=== PATIENT | female | born 1995 | race Caucasian/White ===

== ENCOUNTER 2016-10-07 12:35 | Inpatient (IN) | payer BC ==
[2016-10-07] VITALS (7 sets, daily range): BP systolic 71–87; BP diastolic 43–66
[~2016-10-07] VITALS: Ht 154.9 cm; Wt 54.1 kg
--- NOTE | 2016-10-07 12:53 | NUR ---
PRESENTS SELF TO ED DUE TO CO SOB SINCE THIS AM. PT IS AAO4, APPEARS IN NO APPARENT DISTRESS, HOWEVER PATIENT APPEARS ANXIOUS. PT IS SATING WELL ON ROOM AIR. SKIN IS WARM TO TOUCH AND NON DIAPHORETIC. PATIENT IS AFEBRILE. VSS
[2016-10-07] MEDS ORDERED: LORAZEPAM INJ 2 MG/ML VIAL IM ONE (13:00)
[2016-10-07] MEDS ORDERED: LORAZEPAM INJ 2 MG/ML VIAL ONE (13:10)
--- NOTE | 2016-10-07 13:27 | NUR ---
MEDICATED PT ORDERED
[2016-10-07] MEDS ORDERED: IV SET PRIMARY PUMP SET 1 EA INFUS.SET MC ONE ×3 (14:25→19:48)
[2016-10-07] MEDS ORDERED: IV NS 0.9% 1,000 ML ONE ×2 (14:25→15:21)
[2016-10-07] MEDS ORDERED: IV NS 0.9% 1,000 ML IV ONE ×2 (14:30→21:00)
[2016-10-07] MEDS ORDERED: IV SET PRIMARY 1 EA INFUS.SET MC ONE (15:21)
[2016-10-07] MEDS ORDERED: IV NS 0.9% 1,000 ML BAG IV ONE (15:30)
[2016-10-07 15:41] LABS: BASOPHILS # (AUTO) 0.2 /CMM (0.0-0.2); EOSINOPHILS % (AUTO) 0.3 % (0.0-6.0); HEMATOCRIT 36 % (33-45); HEMOGLOBIN 12.5 g/dL (11.5-14.8); LYMPHOCYTES # (AUTO) 0.6 /CMM (0.8-4.8); LYMPHOCYTES % (AUTO) 4.9 % (20.0-44.0); MEAN CORPUSCULAR HEMOGLOBIN 32 PG (26.0-33.0); MEAN CORPUSCULAR HGB CONC 35 g/dl (31.0-36.0); MEAN CORPUSCULAR VOLUME 91 fL (82-100); MONOCYTES # (AUTO) 0.5 /CMM (0.1-1.30); MONOCYTES % (AUTO) 4.2 % (2.0-12.0); NEUTROPHILS # (AUTO) 11.1 /CMM (1.8-8.9); NEUTROPHILS % (AUTO) 88.6 % (43.0-81.0); PLATELET COUNT (AUTO) 177 /CMM (150-450); RDW COEFFICIENT OF VARIATION 12.2 (11.5-15.0); RED BLOOD CELL COUNT(AUTO) 3.96 MIL/uL (4.0-5.2); WHITE BLOOD COUNT (AUTO) 12.4 K/uL (4.3-11.0)
[2016-10-07 15:51] LABS: CALCIUM, SERUM 7.8 mg/dL (8.5-10.1); CREATININE 0.8 mg/dL (0.6-1.3); POTASSIUM 3.3 mmol/L (3.5-5.1)
[2016-10-07] MEDS ORDERED: ACETAMINOPHEN ES 500 MG TABLET ONE (15:53)
[2016-10-07 15:57] LABS: BILIRUBIN,DIRECT 0.1 mg/dL (0.0-0.2); BILIRUBIN,TOTAL 0.6 mg/dL (0.2-1.0); TOTAL PROTEIN, SERUM 5.8 g/dL (6.4-8.2)
[2016-10-07] MEDS ORDERED: ACETAMINOPHEN 325 MG TABLET PO ONE (16:00)
--- NOTE | 2016-10-07 16:12 | NUR ---
PATIENT NOTED WITH TEMP 100.8.
[2016-10-07 16:20] LABS: APPEARANCE,URINE Slightly Cloudy (CLEAR); BILIRUBIN,URINE SMALL (NEGATIVE); BLOOD, URINE Negative Ery/uL (NEGATIVE); COLOR,URINE Dark (YELLOW); KETONES,URINE 15 (NEGATIVE); LEUKOCYTE ESTERASE ,URINE Trace (NEGATIVE); NITRITE, URINE Negative (NEGATIVE); PROTEIN,URINE 30 mg/dl (NEGATIVE); UGLUCOSE Negative (NEGATIVE); UROBILINOGEN,URINE 0.2 EU/dL (0.2)
[2016-10-07 16:25] LABS: PREGNANCY TEST URINE QUAL NEGATIVE (NEGATIVE)
[2016-10-07 16:31] LABS: BACTERIA,URINE Moderate /HPF (None Seen); RBC,URINE 0-2 /HPF (0-2); SQUAMOUS EPITHELIAL CELL,UR Many /HPF (None Seen)
[2016-10-07] MEDS ORDERED: CT SWABBABLE VALVE TRANS SET 1 EA INFUS.SET MC ONE (16:34)
[2016-10-07] MEDS ORDERED: IOHEXOL-350 100 ML VIAL IV ONE (16:34)
[2016-10-07] MEDS ORDERED: IV NS 0.9% 250 ML IV ONE (16:34)
[2016-10-07] MEDS ORDERED: CEFTRIAXONE 1 G in IV D5W 50 ML IV ONE (17:00)
[2016-10-07] MEDS ORDERED: CEFTRIAXONE 1GM BAG (ER ONLY) 50 ML IV ONE (17:02)
[2016-10-07] MEDS ORDERED: SERT50TA PO (17:38)
[2016-10-07] MEDS ORDERED: [UNRECOGNIZED DRUG - REMARK] PO (17:38)
[2016-10-07] MEDS ORDERED: PROP20TA7 PO (17:38)
[2016-10-07] MEDS ORDERED: SERT25TA PO (17:38)
[2016-10-07] MEDS ORDERED: HYDR5TAB PO ×2 (17:45→17:47)
--- NOTE | 2016-10-07 17:58 | NUR ---
Patient is resting comfortably in bed with eyes closed. Easily aroused. VSS
[2016-10-07] MEDS ORDERED: HYDROCODONE/APAP 5/325MG 1 EACH TABLET PO PRN (18:00)
[2016-10-07] MEDS ORDERED: ONDANSETRON HCL/PF 4 MG/2 ML VIAL IVP PRN (18:00)
[2016-10-07] MEDS ORDERED: ACETAMINOPHEN 325 MG TABLET PO PRN (18:00)
[2016-10-07] MEDS ORDERED: Z GUARD REMEDY 2 OZ OINT TP PRN (18:00)
[2016-10-07] MEDS ORDERED: MAGNESIUM HYDROXIDE 30 ML UDC PO PRN (18:00)
[2016-10-07] MEDS ORDERED: MAG HYDROX/AL HYDROX/SIMETH 30 ML UDC PO PRN (18:00)
[2016-10-07] MEDS ORDERED: ZOLPIDEM TARTRATE 5 MG TABLET PO PRN (18:00)
--- NOTE | 2016-10-07 18:17 | NUR ---
PATIENT WILL BE ADMITTED TO 314-2 TELEMETRY BED, NURSE WILL BE VERONICA.
--- NOTE | 2016-10-07 18:37 | NUR ---
PATIENT TRANSPORTED TO [address] [place] [address]
--- NOTE | 2016-10-07 18:58 | NUR ---
Rajinder chatman in ED - 10/07/16 at 1900 by KELSEY PATIENT NOTED WITH TEMP 100.7. MADE AWARE
[2016-10-07] MEDS ORDERED: PROPRANOLOL HCL (19:42)
[2016-10-07] MEDS ORDERED: ZOLOFT PO (19:42)
[2016-10-07] MEDS ORDERED: HYDROCORTISONE (19:42)
--- NOTE | 2016-10-07 19:44 | NUR ---
RN NOTES: TALKED TO FAMILY MEMBER AND PT, PT STATED SHE 'S TAKING HYDROCORTISONE 5MG TAB PO, 1TAB IN AM, HALF TABLET IN THE AFTERNOON, AND 4TAB AT BED TIME, PROPRANOLOL HCL PRN FOR STRESS ONLY OR ELEVATED HR, ZOLOFT 75MG TAB PO AT BED TIME ONLY, PT ALSO SAID SHE DIDNT TAKE ANY OF ER MEDICATION TODAY, AND SHE WAS SO WORRIED ABOUT IT BECAUSE SHE HAS CONGENITAL MILD HYPERPLASIA SINCE 4 Y/O AND SHE'S ON THIS MEDICATION, FAMILY AT BED SIDE, SHE ALSO GIVE THE NUMBER OF HER PCP DR REYES [phone], DR KAPADIA GLASS CUT OFF TENDER ANAM' PAGED GLASS CUT OFF TENDER IAN SNEED NP, AWAITING FOR CALLBACK
--- NOTE | 2016-10-07 19:55 | NUR ---
PUBLIC HEALTH DIETITIAN INITIAL NOTES: RECEIVED REPORT FORM HEATHER HANSEN, PT IN BED, AWAKE, A/O X4, FAMILY AT BED SIDE, DENIES ANY PAIN OR DISCOMFORT AT THIS TIME. PT HAS LEFT AC G 20 PATENT AND FLUSHING WELL, ON HL. ON TELE CURRENTLY SINUS RHYTHM HR 120'S. PT WAS GIVEN 2L OF IV BOLUS IN ER AND ANTIBIOTIC. SAFETY PRECAUTIONS FOR FALL INITIATED CALL LIGHT IN REACH WILL CONTINUE TO MONITOR.
[2016-10-07] MEDS ORDERED: CEFTRIAXONE 1 G in IV D5W 50 ML IV SCH (20:00)
[2016-10-07] MEDS: IV NS 0.9% 1,000 ML IV PRN (20:07)
--- NOTE | 2016-10-07 20:30 | NUR ---
rn notes: body check performed and no skin issues noted, family refused to send home medications to pharmacy stated they will bring it home instead,
--- NOTE | 2016-10-07 20:47 | NUR ---
NEW ORDER: RECEIVED CALL FROM WEARING APPAREL FOLDER NAREN, RELAYED ABOUT PT'S MEDICATION, SHE STATED TO DC THE PREVIOUS ORDERS, SHE WILL DO MED RECON FROM THE CORRECT MEDICATION I INPUTTED ON PT'S MED LIST. ALSO INFORMED WEARING APPAREL FOLDER REGARDING BP OF PT 87/51 ON SINUS TACHY 125, PT ASYMPTOMATIC, WEARING APPAREL FOLDER STATED TO GIVE 500ML OF NS BOLUS AGAIN.
[2016-10-07] MEDS ORDERED: PROPRANOLOL HCL 10 MG TABLET PO PRN (21:00)
--- NOTE | 2016-10-07 21:14 | NUR ---
RN NOTES: CONTACTED NAREN POOL LIFEGUARD REGARDING PT'S FAMILY'S REQUEST TO CALL PT'S PCP MD DR ARAUJO AT [phone], RELAYED TO POOL LIFEGUARD BIOMED TECH, ALSO INFORM ABOUT PT ASKING TO TAKE ALL HER MEDS TONIGHT, POOL LIFEGUARD STATED SHE ALREADY PUT IN THE ORDER BUT THESE MEDICATIONS NEED TO BE CONVERTED BY PHARMACY, POOL LIFEGUARD STATED IF PT HAS THE MEDICATIONS FROM HOME, ITS OKAY TO GIVE IT, INFORMED PT FAMILY
--- NOTE | 2016-10-07 21:18 | NUR ---
RN NOTES: PT TAKEN 5 TABLETS OF HYDROCORTISONE, 1.5 TAB OF ZOLOFT, FAMILY MEMBER GIBVEN ALL MEDICATIONS TO THE PT
--- NOTE | 2016-10-07 21:31 | NUR ---
ASSESSMENT: RECHECK VS AND REVEAL 84/46 HR 108 RR 20 SPO2 100% ON ROOM AIR, TEMP 99.4, COOLING MEASURES PROVIDED, REMOVED EXTRA BLANKET PT REQUESTING TYLENOL FOR FEVER, PRN TYLENOL 650MG TAB PO ADMINISTERED TO THE PT AT THIS TIME, ALSO 500ML OF NS BOLUS ADMINISTERED AT THIS TIME, WILL CONTINUE TO MONITOR
[2016-10-07] MEDS ORDERED: HYDROCORTISONE SOD SUCCINATE 100 MG/2 ML VIAL ONE (21:58)
[2016-10-07] MEDS: HYDROCORTISONE SOD SUCCINATE 100 MG/2 ML VIAL IV SCH (22:16)
--- NOTE | 2016-10-07 22:30 | NUR ---
VS RECHECK: RECHECK VS AND REVEAL 85/51 HR 101 RR 19 98.8 100% ON ROOM AIR, HANDHOLE MACHINE OPERATOR NAREN AWARE
--- NOTE | 2016-10-07 22:30 | NUR ---
RN NOTES: SOLUCORTEF ADMINISTERED AT THIS TIME, MEDICATION OVERRIDE BY ACCESS REPJAMIE AL, PT TAKEN 25MG OF HYDROCORTISONE TAB, 5MG TAB EACH, TUTORIAL LABORATORY SUPERVISOR NAREN AWARE, OKAY TO GIVE THE MEDICATION, ONLY HALF DOSE 25MG PT ALREADY TAKEN 25MG OF THE SAID MEDICATION,
--- NOTE | 2016-10-07 23:00 | NUR ---
VS RECHECK: RECHECK VS AND REVEAL 71/47 HR 96 RR 20 SPO2 100% TEMP 99.9, COOLING MEASURES PROVIDED REMOVED EXCESS BLANKET MAKE ROOM TEMP COOLER, PT ASYMPTOMATIC DENIES ANY HEAD ACHE DIZZINESS OR PALPITATION, RECHECKED BP USING REGULAR CUFF 78/43 HR 96
--- NOTE | 2016-10-07 23:29 | NUR ---
RN NOTES: INFORM PT THAT BECAUSE SHE'S ON TELEMETRY, PER POLICY TO CHECKED VS Q4HR, ESPECIALLY HER BP IN LOW SIDE, PER PT SHES'S NOT COMFORTABLE DOING IT Q4HRS, AND SHE DOESNT WANT IT, SHE ADDED SHE WOULD LIKE TO GET A GOOD NIGHT SLEEP SINCE ITS BEEN A LONG DAY FOR HER. EDUCATE PT REGARDING IMPORTANCE RISK AND BENEFITS HENCE PT STILL REFUSED, SIMULATION EDUCATOR SERVANDO AWARE
--- NOTE | 2016-10-07 23:30 | NUR ---
RN NOTES: MACHINE STONE POLISHER NAREN AWARE ABOUT PT'S LATEST VS, PT REMAINS ASYMPTOMATIC ON SINUS RHYTHM HR 95, DENIES ANY CHEST PAIN OR DISCOMFORT DENIES ANY DIZZINESS, PER MACHINE STONE POLISHER NO NEW ORDER WILL CONTINUE TO MONITOR PT
--- NOTE | 2016-10-08 01:35 | NUR ---
rn notes: seen pt sleeping at this time, appears comfortable, not in any distress, will continue to monitor
--- NOTE | 2016-10-08 02:00 | NUR ---
RN NOTES: RELAYED TO NAREN BYRD REGARDING K 3.3, NO NEW ORDERS RECEIVED STATED TO HAVE AM MD TO FOLLOW UP SINCE PT HAVE AM LABS
--- NOTE | 2016-10-08 03:00 | NUR ---
IVF: ADMINISTERED NEW BAG OF IVF, NS AT 125 ML/HR
--- NOTE | 2016-10-08 03:49 | NUR ---
rn notes: currently sinus rhythm hr 85, pt sleeping at this time, no facial grimace noted appears calm and comfortable, not in apparent distress, will continue to monitor
[2016-10-08 04:34] VITALS: BP 97/48
--- NOTE | 2016-10-08 04:35 | NUR ---
rn notes: pt requested top have her blood draw at 0800am, educate pt regarding importance of compliance
--- NOTE | 2016-10-08 06:35 | NUR ---
TREND INVESTIGATOR CLOSING NOTES: PT IN BED AWAKE, REMAINS ON ROOM AIR DENIES ANY SOB, DENIES ANY CHEST PAIN DIZZINESS OR LIGHT HEADEDNESS. LEFT AC IV ACCESS REMAINS PATENT AND FLUSHING WELL, INFUSING WITH NS AT 125ML/HR. NO REDNESS INFILTRATION NOTED. ON SINUS RHYTHM HR 82. NEEDS ATTENDED. WILL ENDORSE TO DAY RN FOR CAIO.
--- NOTE | 2016-10-08 07:19 | NUR ---
TELE/RN AM NOTES RECEIVED PATIENT IN BED, ASLEEP, NO S/SX SOB, DENIES PAIN. DOESN'T WANT TO BE DISTURBED . ASKED IF SHE CAN BE CHECKED AROUND 8AM. PATIENT'S WISHES RESPECTED. APPEARS COMFORTABLE. IV LINE ON LAC INTACT, WITH NS 125CC/H. TELE MONITOR ATTACHED, HEART RATE 94. BED IN LOW POSITION, 2SR UP FOR SAFETY. WITH CALL LIGHT WITHIN EASY REACH. FATHER AT THE BEDSIDE. WILL CONTINUE TO MONITOR ACCORDINGLY
[2016-10-08] MEDS: PANTOPRAZOLE 40 MG TABLET.DR PO SCH (07:30)
[2016-10-08 08:00] VITALS: BP 92/53
[2016-10-08] MEDS ORDERED: HYDROCORTISONE 5 MG SCH (09:00)
[2016-10-08] MEDS ORDERED: HYDROCORTISONE SOD SUCCINATE 100 MG/2 ML VIAL IV SCH (09:00)
[2016-10-08 09:09] LABS: ALBUMIN 2.8 g/dL (3.4-5.0); BILIRUBIN,TOTAL 0.3 mg/dL (0.2-1.0); CALCIUM, SERUM 7.4 mg/dL (8.5-10.1); CREATININE 0.6 mg/dL (0.6-1.3); MAGNESIUM 1.5 mg/dL (1.8-2.4); PHOSPHORUS 2.7 mg/dL (2.5-4.9); POTASSIUM 3.2 mmol/L (3.5-5.1); TOTAL PROTEIN, SERUM 5.8 g/dL (6.4-8.2)
[2016-10-08] MEDS: IV NS 0.9% 1,000 ML IV PRN ×2 (09:28→22:32)
[2016-10-08] MEDS: HYDROCORTISONE SOD SUCCINATE 100 MG/2 ML VIAL IV SCH ×4 (09:28→22:15)
[2016-10-08] MEDS: FLUDROCORTISONE 0.1 MG TABLET PO SCH (09:28)
[2016-10-08 09:35] LABS: BASOPHILS % (AUTO) 0.1 % (0.0-2.0); EOSINOPHILS % (AUTO) 0.4 % (0.0-6.0); HEMATOCRIT 35 % (33-45); HEMOGLOBIN 11.9 g/dL (11.5-14.8); LYMPHOCYTES % (AUTO) 11.4 % (20.0-44.0); MEAN CORPUSCULAR HEMOGLOBIN 31 PG (26.0-33.0); MEAN CORPUSCULAR HGB CONC 35 g/dl (31.0-36.0); MEAN CORPUSCULAR VOLUME 90 fL (82-100); MONOCYTES # (AUTO) 0.5 /CMM (0.1-1.30); MONOCYTES % (AUTO) 5.5 % (2.0-12.0); NEUTROPHILS # (AUTO) 7.2 /CMM (1.8-8.9); NEUTROPHILS % (AUTO) 82.6 % (43.0-81.0); PLATELET COUNT (AUTO) 168 /CMM (150-450); RDW COEFFICIENT OF VARIATION 13.1 (11.5-15.0); RED BLOOD CELL COUNT(AUTO) 3.83 MIL/uL (4.0-5.2); WHITE BLOOD COUNT (AUTO) 8.7 K/uL (4.3-11.0)
--- NOTE | 2016-10-08 09:39 | NUR ---
CALLED DR. JACINTO VERIFIED STEROID ORDERS, OK TO ADMINISTER FLORINEF 0.1 MG TABLET AND SOLU-CORTEF 50 MG (1 ML) IV D/T ADRENAL INSUFFICIENCY. MD EXPLAINED TO THE PATIENT AND FAMILY. MEDICATION ADMINISTERED ORDERED. REFUSED PROTONIX
[2016-10-08 10:00] VITALS: BP 92/53
[2016-10-08] MEDS ORDERED: POTASSIUM CHLORIDE 20 MEQ TAB.PRT.SR PO SCH (13:30)
[2016-10-08] MEDS ORDERED: SECONDARY IV SET 1 EA INFUS.SET MC ONE ×2 (13:35→17:31)
[2016-10-08] MEDS: Magnesium 1GM/D5W 100ML PREMIX 100 ML IV SCH ×2 (13:48→14:42)
[2016-10-08 16:00] VITALS: BP 113/76
[2016-10-08] MEDS ORDERED: CEFTRIAXONE 1 G in IV D5W 50 ML IV SCH (17:00)
--- NOTE | 2016-10-08 18:47 | NUR ---
MS/RN CLOSING NOTES PATIENT IS IN THE BED, AWAKE, ALERT, IN HAPPY MOOD, NO PAIN, NO DISTRESS NOTED, MAGNESIUM AND POTASSIUM REPLACED, ORDERED. ANTIBIOTIC ADMINISTERED. IV LINE LAC INTACT, PATENT WITH N/S AT 125CC/H, NO S/SX FLUID OVERLOAD NOTED, RESPIRATION EVEN UNLABORED. STEROID ADMINISTERED ORDERED. PATIENT'S AND FAMILY NEEDS MET IN TIMELY MANNER, WITH CALL LIGHT WITHIN EASY REACH ALL THE TIME. WILL ENDORSE TO THE DOOR PANELER NURSE ACCORDINGLY FOR CAIO
--- NOTE | 2016-10-08 19:35 | NUR ---
MS/RN NOTES RECEIVED PT. SITTING UP IN BED. AWAKE, ALERT AND ORIENTED X4. BREATHING EVEN AND UNLABORED ON ROOM AIR. NO SOB, RESPIRATORY DISTRESS OR COMPLAINTS OF PAIN NOTED AT THIS TIME. PT. WITH LEFT AC 20 GAUGE PERIPHERAL IV PRESENT, PATENT AND INTACT ADMINISTERING TO PT. NS @ 125 ML/HR. PT. WITH FAMILY MEMBER PRESENT AT BEDSIDE. BED IN LOWEST POSITION, CALL LIGHT WITHIN REACH, WILL CONTINUE TO MONITOR.
[2016-10-08 19:53] VITALS: BP 110/68
[2016-10-08] MEDS ORDERED: SERTRALINE HCL 25 MG TABLET PO SCH (22:00)
--- NOTE | 2016-10-08 22:35 | NUR ---
MS/RN NOTES GAVE REPORT TO JADE ROBLES AND ENDORSED PT. TO HER. PT. IS SITTING UP IN BED. AWAKE, ALERT AND ORIENTED X4. BREATHING EVEN AND UNLABORED ON ROOM AIR. NO SOB, RESPIRATORY DISTRESS OR COMPLAINTS OF PAIN NOTED AT THIS TIME. PT. WITH LEFT AC 20 GAUGE PERIPHERAL IV PRESENT, PATENT AND INTACT ADMINISTERING TO PT. NS @ 125 ML/HR. PT. FATHER PRESENT AT BEDSIDE. BED IN LOWEST POSITION, CALL LIGHT WITHIN REACH.
--- NOTE | 2016-10-08 22:37 | NUR ---
MS/RN NOTES RECEIVED PT FROM JADE LORENZANA. PT AWAKE, SITTING UP IN BED WITH FATHER AT BEDSIDE. ON ROOM AIR. NO COMPLAINTS OF SOB OR PAIN. NO S/S OF DISTRESS NOTED. IV TO LAC PATENT AND INTACT RUNNING NS AT 125ML/HR. NO INFILTRATION NOTED. BED IN LOW/LOCKED POSITION WITH CALL LIGHT IN REACH. ENCOURAGED TO CALL FOR ASSISTANCE. WILL CONTINUE TO MONITOR
--- NOTE | 2016-10-09 06:53 | NUR ---
MS/RN CLOSING NOTES PT ASLEEP, EASILY AROUSABLE TO NAME. FATHER AT BEDSIDE. A/OX4. ON ROOM AIR. DENIES SOB, PAIN OR DISTRESS AT THIS TIME. IV TO LAC PATENT AND INTACT RUNNING IVF ORDERED. NO SIGNS OF INIFILTRATION NOTED. ALL NEEDS MET AND ATTENDED THROUGHOUT SHIFT. MADE PT COMFORTABLE. NO CHANGES OVERNIGHT. BED IN LOW/LOCKED POSITION WITH CALL LIGHT IN REACH. BED RAILS UPX2. WILL ENDORSE TO AM SHIFT CAIO.
[2016-10-09 07:16] LABS: BASOPHILS % (AUTO) 0.1 % (0.0-2.0); EOSINOPHILS # (AUTO) 0.1 /CMM (0.0-0.7); EOSINOPHILS % (AUTO) 0.4 % (0.0-6.0); HEMATOCRIT 33 % (33-45); HEMOGLOBIN 11.6 g/dL (11.5-14.8); LYMPHOCYTES # (AUTO) 2.1 /CMM (0.8-4.8); LYMPHOCYTES % (AUTO) 17.4 % (20.0-44.0); MEAN CORPUSCULAR HEMOGLOBIN 32 PG (26.0-33.0); MEAN CORPUSCULAR HGB CONC 35 g/dl (31.0-36.0); MEAN CORPUSCULAR VOLUME 91 fL (82-100); MONOCYTES # (AUTO) 1.2 /CMM (0.1-1.30); MONOCYTES % (AUTO) 9.9 % (2.0-12.0); NEUTROPHILS # (AUTO) 8.9 /CMM (1.8-8.9); NEUTROPHILS % (AUTO) 72.2 % (43.0-81.0); PLATELET COUNT (AUTO) 174 /CMM (150-450); RDW COEFFICIENT OF VARIATION 13.1 (11.5-15.0); RED BLOOD CELL COUNT(AUTO) 3.66 MIL/uL (4.0-5.2); WHITE BLOOD COUNT (AUTO) 12.4 K/uL (4.3-11.0)
[2016-10-09] MEDS: IV NS 0.9% 1,000 ML IV PRN (07:28)
--- NOTE | 2016-10-09 07:30 | NUR ---
MS RN initial notes Received patient in bed, awake, head of bed elevated, no SOB or distress noted. On room air and tolerated well. Dad at bedside. Alert and oriented x 4, verbally responsive and able to make needs known. IV intact with IVF infusing well. Kept patient clean and comfortable in bed, call light with in patient reach, will continue to monitor accordingly.
[2016-10-09 07:56] LABS: CALCIUM, SERUM 8.1 mg/dL (8.5-10.1); CREATININE 0.5 mg/dL (0.6-1.3); POTASSIUM 3.3 mmol/L (3.5-5.1)
[2016-10-09] MEDS: PANTOPRAZOLE 40 MG TABLET.DR PO SCH (08:12)
[2016-10-09] MEDS: FLUDROCORTISONE 0.1 MG TABLET PO SCH (08:12)
[2016-10-09] MEDS: HYDROCORTISONE SOD SUCCINATE 100 MG/2 ML VIAL IV SCH (08:13)
--- NOTE | 2016-10-09 09:30 | NUR ---
MS sausage grinder notes Discharge instructions given to patient and able to understand instructions. Prescription for PO antibiotic given. Signed discharge paper and belongings list. Discontinued IV and pressured applied to prevent bleeding. Skin is intact. Flu vaccine not given duet o out of season. Pneumonia vaccine not given due to <65 years old. Patient is alert and oriented x 4, verbally responsive and able to make all needs known. No pain or discomfort noted. Vital signs checked and recorded. Patient left the hospital in stable condition accompanied by father, left via ambulatory and tolerated well. MD and charge nurse aware.
== END 2016-10-09 09:30 | disposition home or self-care (01) | DRG 872 ==
LOC: ER 12:37 → TELE 18:38 → MED 10-08 10:07
PROVIDERS: ADMIT Family Medicine; ATTEND Family Medicine
DX: A41.9 Sepsis, unspecified organism (principal); N39.0 Urinary tract infection, site not specified; E27.40 Unspecified adrenocortical insufficiency; E87.2 Acidosis; E87.6 Hypokalemia; I95.9 Hypotension, unspecified; R78.9 Finding of unspecified substance, not normally found in blood
CPT/HCPCS: 36415; 71010-TC; 80048-TC; 80053-TC; 80076-TC; 81000-TC; 82533; 82962-TC; 83605-TC; 83735-TC; 84100-TC; 84703-TC; 85025-TC; 85378-TC; 87040-TC; 87081-TC; 87086-TC; 87400; A4606; J0696; J1720; J2060; J3475; J7030; J7050; J7060; Q9967; Z7610

== ENCOUNTER 2020-05-08 14:24 | Emergency (ER) | payer BC ==
[~2020-05-08] VITALS: Ht 157.5 cm; Wt 56.2 kg
[~2020-05-08 14:24] MED LIST: HYDROCORTISONE; PROPRANOLOL HCL; ZOLOFT PO
[2020-05-08] MEDS ORDERED: PANT40TA49 PO (14:45)
[2020-05-08] MEDS ORDERED: FAMO40TA7 PO (14:45)
[2020-05-08] MEDS ORDERED: SERT50TA12 PO (14:45)
[2020-05-08] MEDS ORDERED: ROSU20TA32 PO (14:45)
[2020-05-08] MEDS ORDERED: SPIR100T5 PO (14:58)
[2020-05-08] MEDS ORDERED: PIPERACILLIN /TAZOBACTAM 3.375 G in IV D5W 50 ML IV ONE (15:00)
[2020-05-08] MEDS ORDERED: VANCOMYCIN 1 GM in IV D5W 250 ML IV ONE (15:00)
[2020-05-08] MEDS ORDERED: HYDROCORTISONE SOD SUCCINATE 100 MG/2 ML VIAL IV SCH (15:00)
[2020-05-08] MEDS ORDERED: IV NS 0.9% 1,000 ML BAG IV ONE (15:00)
[2020-05-08] MEDS ORDERED: HYDROCORTISONE SOD SUCCINATE 100 MG/2 ML VIAL ONE (15:24)
[2020-05-08] MEDS ORDERED: HYDR5TAB13 PO (15:55)
[2020-05-08] MEDS ORDERED: HYDROCORTISONE PO (15:55)
[2020-05-08] MEDS ORDERED: GABA-532 PO (15:55)
[2020-05-08 16:06] LABS: BASOPHILS % (AUTO) 0.2 % (0.0-2.0); EOSINOPHILS % (AUTO) 0.8 % (0.0-6.0); HEMATOCRIT 36 % (33-45); HEMOGLOBIN 11.7 g/dL (11.5-14.8); LYMPHOCYTES % (AUTO) 15.1 % (20.0-44.0); MEAN CORPUSCULAR HGB CONC 32 g/dl (31.0-36.0); MEAN CORPUSCULAR VOLUME 96 fL (82-100); MONOCYTES # (AUTO) 0.8 /CMM (0.1-1.30); MONOCYTES % (AUTO) 6.1 % (2.0-12.0); NEUTROPHILS # (AUTO) 10.5 /CMM (1.8-8.9); NEUTROPHILS % (AUTO) 77.8 % (43.0-81.0); PLATELET COUNT (AUTO) 226 /CMM (150-450); RED BLOOD CELL COUNT(AUTO) 3.76 MIL/uL (4.0-5.2); WHITE BLOOD COUNT (AUTO) 13.4 K/uL (4.3-11.0)
[2020-05-08 16:20] LABS: D-DIMER 1.83 mg/L(FEU (0.17-0.50)
[2020-05-08 16:46] LABS: ALANINE AMINOTRANSFERASE 29 U/L (12-78); ALBUMIN 2.8 g/dL (3.4-5.0); ALKALINE PHOSPHATASE 31 U/L (46-116); ASPARTATE AMINOTRANSFERASE 29 U/L (15-37); BILIRUBIN,DIRECT 0.1 mg/dL (0.0-0.2); BILIRUBIN,TOTAL 0.4 mg/dL (0.2-1.0); CALCIUM, SERUM 8.1 mg/dL (8.5-10.1); CARBON DIOXIDE 26 mmol/L (21-32); CHLORIDE 104 mmol/L (98-107); CREATININE 0.7 mg/dL (0.6-1.3); GLUCOSE 81 mg/dL (74-106); POTASSIUM 3.2 mmol/L (3.5-5.1); SODIUM SERUM 141 mmol/L (136-145); TOTAL PROTEIN, SERUM 5.9 g/dL (6.4-8.2); UREA NITROGEN, BLOOD 8 mg/dL (7-18)
--- NOTE | 2020-05-08 17:10 | NUR ---
yolis, from home, had syncopal episode in the bathroom, -trauma, BP 60/40 on scene. On room air, breathing evenly and unlabored. Connected to the monitor and pulse ox. Kept comfortable, will continue to monitor accordingly.
[2020-05-08 18:04] LABS: B-TYPE NATRIURETIC PEPTIDE 355 PG/ML (0-125)
[2020-05-08 18:17] VITALS: BP 101/63
--- NOTE | 2020-05-08 18:18 | NUR ---
Patient discharged to home in stable condition. Written and verbal after care instructions given. Patient verbalizes understanding of instruction.IV removed. Catheter intact and site benign. Pressure and 4x4 applied to site. No bleeding noted.
[2020-05-08 19:44] LABS: BILIRUBIN,URINE NEGATIVE (NEGATIVE); COLOR,URINE YELLOW (YELLOW); LEUKOCYTE ESTERASE ,URINE NEGATIVE (NEGATIVE); NITRITE, URINE NEGATIVE (NEGATIVE); PH,URINE 7.5 (5.0-8.0); PROTEIN,URINE NEGATIVE (NEGATIVE); UGLUCOSE NEGATIVE (NEGATIVE); UROBILINOGEN,URINE 0.2 EU/dL (0.2)
[2020-05-08 19:50] LABS: BACTERIA,URINE RARE /HPF (None Seen); WBC,URINE 0-2 /HPF (0-3)
[2020-05-08 19:51] LABS: YEAST,URINE Many /HPF (None Seen)
== END 2020-05-08 18:18 | disposition home or self-care (01) ==
LOC: ER 14:26
DX: I95.9 Hypotension, unspecified (principal); E27.40 Unspecified adrenocortical insufficiency; Z20.828 Contact with and (suspected) exposure to other viral communicable diseases; Z79.899 Other long term (current) drug therapy; R79.1 Abnormal coagulation profile; Z98.890 Other specified postprocedural states; Z91.040 Latex allergy status; R06.02 Shortness of breath
CPT/HCPCS: 36415; 71045; 76604; 76705; 80048; 80076; 81001; 83605; 83880; 84145; 84484; 85025; 85378; 85610; 85730; 87040 ×2; 87086; 87426; 93005; 96365; 96367; 96375; 99291; C9803; J1720; J2543; J3370; J7030 ×2; J7040; J7060